=== PATIENT | male | born 1990 | race African-American/Black ===

== ENCOUNTER 2019-02-19 04:50 | Emergency (ER) | payer OTHER ==
[~2019-02-19] VITALS: Ht 167.6 cm; Wt 162.7 kg
[2019-02-19] MEDS ORDERED: DEXAMETHASONE 4 MG TABLET PO ONE (07:15)
[2019-02-19 10:08] VITALS: BP 145/94
== END 2019-02-19 10:26 | disposition home or self-care (01) ==
LOC: EDBD 04:50 → EMS 04:50
DX: J02.0 Streptococcal pharyngitis (principal); H92.03 Otalgia, bilateral; J45.909 Unspecified asthma, uncomplicated
CPT/HCPCS: 87430; 99283; J8540